=== PATIENT | female | born 1960 | race Caucasian/White ===

== ENCOUNTER 2019-12-24 15:38 | Emergency (ER) | payer OTHER ==
[2019-12-24 16:09] LABS: ABSOLUTE BASOPHILS # (AUTO) 0.1 10^3/uL (0.0-0.2); ABSOLUTE EOSINOPHILS # (AUTO) 0.1 10^3/uL (0.0-0.6); ABSOLUTE LYMPHOCYTES (AUTO) 1.4 10^3/uL (0.5-4.7); ABSOLUTE MONOCYTES (AUTO) 0.4 10^3/uL (0.1-1.4); ABSOLUTE NEUT (AUTO) 5.5 10^3/uL (1.7-8.2); BASOPHILS % (AUTO) 0.7 % (0-2); EOSINOPHILS % (AUTO) 0.9 % (0-6); HEMATOCRIT 36.5 % (36.0-47.0); HEMOGLOBIN 12.3 g/dL (12.0-15.5); LYMPHOCYTES % (AUTO) 18.4 % (13-45); MEAN CORPUSCULAR HEMOGLOBIN 30.3 pg (27.0-33.4); MEAN CORPUSCULAR HGB CONC 33.6 g/dL (32.0-36.0); MEAN CORPUSCULAR VOLUME 90 fl (80-97); MONOCYTES % (AUTO) 5.7 % (3-13); PLATELET COUNT 343 10^3/uL (150-450); RED BLOOD COUNT 4.05 10^6/uL (3.72-5.28); RED CELL DISTRIBUTION WIDTH 13.7 % (11.5-14.0); SEGMENTED NEUTROPHILS % (AUTO) 74.3 % (42-78); TOTAL CELLS COUNTED % (AUTO) 100 %; WHITE BLOOD COUNT 7.4 10^3/uL (4.0-10.5)
[2019-12-24 16:29] LABS: ALBUMIN 4.1 g/dL (3.5-5.0); ALKALINE PHOSPHATASE 98 U/L (38-126); ANION GAP 6 (5-19); ASPARTATE AMINO TRANSFERASE 36 U/L (14-36); BILIRUBIN,TOTAL 0.3 mg/dL (0.2-1.3); BLOOD UREA NITROGEN 15 mg/dL (7-20); CALCIUM 9.4 mg/dL (8.4-10.2); CARBON DIOXIDE 30 mmol/L (22-30); CHLORIDE 106 mmol/L (98-107); CREATINE KINASE 94 U/L (30-135); GLUCOSE 104 mg/dL (75-110); POTASSIUM 4.6 mmol/L (3.6-5.0); TOTAL PROTEIN 6.7 g/dL (6.3-8.2)
[2019-12-24 16:39] LABS: CREATINE KINASE MB 2.17 ng/mL (<4.55)
[2019-12-24 16:48] LABS: TROPONIN I < 0.012 ng/mL
[2019-12-24] MEDS ORDERED: NORMAL SALINE 1000 ML 1,000 ML IV ONE (17:31)
--- NOTE | 2019-12-24 17:47 | EKG REPORT ---
SEVERITY:- BORDERLINE ECG - SINUS RHYTHM CONSIDER RIGHT VENTRICULAR HYPERTROPHY : Confirmed by: Rey Retana MD 24-Dec-2019 17:46:53
--- NOTE | 2019-12-24 18:24 | ER Document Report ---
Entered by JANA DELGADO SCRIBE 12/24/19 [id number] Acting as scribe for:EYAD MILLAN DO ED General - General Chief Complaint: Syncope Stated Complaint: POSSIBLE SYNCOPE Time Seen by Provider: 12/24/19 17:18 Information source: Patient, Relative - Daughter and Granddaughter Notes: 59-year-old female presents with daughter and granddaughter to the emergency department complaining of syncope episodes 3 hours prior to arrival. Patient denies shortness of breath, cough, rhinorrhea, chest pain, dizziness, SI, HI and lightheadedness. Patient stated that she took her normal Ambien dosage today. Patient explains that she has been out of her Remeron for the past few days and picked up her prescription today. Patient states that she took her Remeron dosage when she returned home. Patient explains that she was "feeling out of sorts". Patient's daughter explains that when patient got up to use the restroom at 2:30 PM, patient made it 15 feet and passed out before making it to the restroom. Patient's daughter explains that when she went to help the patient up, patient passed out again. Daughter laid patient on floor and states that patient was going in and out of consciousness. EMS was called and she was stable when EMS arrived. Patient's daughter reports that patient passed out again when EMS had her stand up. Patient recalls waking up from her syncope episode. TRAVEL OUTSIDE OF THE [place] IN LAST 30 DAYS: No - Related Data Allergies/Adverse Reactions: No Known Allergies Allergy (Unverified 12/24/19 15:51) Home Medications: klonopin. ambien Past Medical History - General Information source: Patient, Relative - Social History Smoking Status: Never Smoker Cigarette use (# per day): No Chew tobacco use (# tins/day): No Family History: Reviewed & Not Pertinent Patient has suicidal ideation: No Patient has homicidal ideation: No - Medical History Medical History: Negative Surgical Hx: Negative Review of Systems - Review of Systems Constitutional: No symptoms reported EENT: See HPI. denies: Nose discharge Cardiovascular: See HPI, Syncope. denies: Chest pain, Dizziness, Lightheaded Respiratory: See HPI. denies: Cough, Short of breath Gastrointestinal: No symptoms reported Genitourinary: No symptoms reported Female Genitourinary: No symptoms reported Musculoskeletal: No symptoms reported Skin: No symptoms reported Hematologic/Lymphatic: No symptoms reported Neurological/Psychological: No symptoms reported -: Yes All other systems reviewed and negative Physical Exam - Vital signs Vitals: Resp Pulse Ox 12 99 12/24/19 15:43 12/24/19 15:43 - Notes Notes: Physical Exam: General: Lethargic. Slow to respond. HEENT: Normocephalic. Atraumatic. PERRL. Extraocular movements intact. Oropharynx clear. Neck: Supple. Non-tender. Respiratory: No respiratory distress. Clear and equal breath sounds bilaterally. Cardiovascular: Regular rate and rhythm. Abdominal: Normal Inspection. Non-tender. No distension. Normal Bowel Sounds. Back: No gross abnormalities. Extremities: Moves all four extremities. Upper extremities: Normal inspection. Normal ROM. Lower extremities: Normal inspection. No edema. Normal ROM. Neurological: Normal cognition. AAOx4. Normal speech. Psychological: Slow to rise and respond. Skin: Warm. Dry. Normal color. Course - Re-evaluation Re-evalutation: 12/24/19 18:44 MDM 59 year old took her remeron this afternoon to nap (along with klonopin and ambien last night) and she was unable to walk to rest room at home. Fell to floor attempting to walk. Near syncope vs medication reaction. She is quite drowsy here but has capacity and is absolutely sure she was not trying to hurt herself and lives with family who are comfortable with taking her home and will watch her. EKG is reassuring here and no concerning symptoms here (chest pain, palpitation, sob) prior to event. Also thankfully no injury. Her orthostatics here are reassuring as well. 12/24/19 18:47 Feeling improved and wants to leave. Feel this is reasonable. - Vital Signs Vital signs: Temp Pulse Resp BP Pulse Ox 97.8 F 67 14 126/87 H 97 12/24/19 15:49 12/24/19 17:49 12/24/19 18:01 12/24/19 18:01 12/24/19 18:01 - Laboratory Result Diagrams: 12/24/19 15:54 12/24/19 15:54 Laboratory results interpreted by me: 12/24/19 15:54 ALT 61 H - EKG Interpretation by Me EKG shows normal: Sinus rhythm Rate: Normal Rhythm: NSR - NSR Nl [place] [address] elevation or depression my interpretati on. Discharge - Discharge Clinical Impression: Syncope, near Medication adverse effect Qualifiers: Encounter type: initial encounter Qualified Code(s): T50.905A - Adverse effect of unspecified drugs, medicaments and biological substances, initial encounter Condition: Good Disposition: HOME, SELF-CARE Instructions: Weakness ([facility]), Near Syncopal Episode ([facility]) Additional Instructions: No driving today. Rest. Take your medicines as perscribed. Please return here for chest pain, shortness of breath, dizziness or thoughts of self harm. I personally performed the services described in the documentation, reviewed and edited the documentation which was dictated to the scribe in my presence, and it accurately records my words and actions.
[2019-12-24 18:36] VITALS: BP 126/87
== END 2019-12-24 18:59 | disposition home or self-care (01) ==
LOC: ER 15:38
DX: R55 Syncope and collapse (principal); T50.905A Adverse effect of unspecified drugs, medicaments and biological substances, initial encounter; X58.XXXA Exposure to other specified factors, initial encounter; Y92.009 Unspecified place in unspecified non-institutional (private) residence as the place of occurrence of the external cause
CPT/HCPCS: 93005; 99284; 96360; 36415; 82553; 82550; 85025; 80053; 84484; 93010; J7030